=== PATIENT | male | born 1970 | race Two or more races ===

== ENCOUNTER 2021-09-06 14:23 | Outpatient (RCR) | payer BC, SELFPAY | END 2021-10-06 13:00 | disposition home or self-care (01) | LOC: HO.WCC 14:23 | PROVIDERS: Visit Provider Physician Assistant | DX: Z09 Encounter for follow-up examination after completed treatment for conditions other than malignant neoplasm (principal); Z87.2 Personal history of diseases of the skin and subcutaneous tissue | CPT/HCPCS: 11042; 97597; 99212 ==